=== PATIENT | female | born 1970 | race Caucasian/White ===

== ENCOUNTER 2017-04-25 22:03 | Emergency (ER) | payer OTHER, MEDICAID ==
[2017-04-25 22:10] VITALS: BP 108/58; BMI 54.3
[2017-04-25] MEDS ORDERED: PHENERGAN INJ 25 MG IM ONE (23:11)
[2017-04-25] MEDS ORDERED: TORADOL 60 MG VIAL IM ONE (23:11)
--- NOTE | 2017-04-25 23:16 | DR.GENAD ---
HPI - PCP Primary Care Physician: DR. NANETTE DAVENPORT - Complaint/Symptoms Chief Complaint Doctors Comments: Patient is complaining of left hip and lower back pain for the past 24 hours getting worst tonight with her having problems with her balance. States she took a pain pill earlier today but it did not relieve the pain completely. She denies dysuria, hematuri, fever or chills. States the pain starts in her lower back on the left side and goes down her left leg to her privates. states the pain is 10 of 10. States she has been taking care of her spouse with a broke hip but she has not been doing any heavy lifting. States she has been loosing weight recently and went from 335 to 317. She denies any recent trauma. Chief Complaint:: LEFT HIP PAIN THAT RADIATES TO CENTER OF BACK AND GOES DOWN; NUMBNESS Self Treatment fo Chief Complaint: NO TX - Nurses notes reviewed Nurses Notes Review: Yes - Source History Provided: Patient - Mode of Arrival Mode of Arrival: Wheelchair - Timing Onset of Chief Complaint: 04/25/17 Came on: Gradually - Duration Duration: Constant How lon Duration: Days - Location Location: let hip and lower back pain - Severity Severity: Moderate - Modifying Factors Worsens:: walking and movement Improves:: nothing PMH - PMH Past Medical History: Yes Past Medical History: Diabetes, Dyslipidemia, GERD, Hypertension Past Medical History Comment: RLS Past Surgical History: Yes Surgical History: Tonsillectomy Past Surgical History Comment: RIGHT EAR SURGERY; CATARACT; - Family History History of Family Medical Conditions: No - Social History Alcohol Use: None Do you use any recreational Drugs:: No Lives With: Spouse Lives Where: Home - infectious screening In the last 2 months have you had wt loss of >10#?: NO Have you had fever, night sweats or hemotysis?: No Have you traveled outside the country in the last 6 months?: No Isolation: Standard ROS - Review of Systems Constitutional: No Symptoms Reported. negative: See HPI, Chills, Diaphoresis, Fever, Malaise, Weakness, Irritable, Fatigue, Loss of Appetite, Other Eyes: No Symptoms Reported. negative: See HPI, Eye Pain, Blurred Vision, Tearing, Discharge, Photophobia, Diplopia, Other ENTM: No Symptoms Reported, Nose Discharge, Nose Congestion Respiratoy: No Symptoms Reported. negative: See HPI, Productive Cough, Non- Productive Cough, Moist Cough, Dry Cough, Hacking Cough, Barking Cough, Brassy Cough, Orthopnea, Short of Breath, Stridor, Wheezing, Hemoptysis, Other Cardiovascular: No Symptoms Reported Gastrointestinal/Abdominal: No Symptoms Reported. negative: See HPI, Abdominal Pain, Constipation, Diarrhea, Nausea, Vomiting, Food Intolerance, Other Genitourinary: No Symptoms Reported. negative: See HPI, Discharge, Dysuria, Frequency, Hematuria, Pain, Bleeding, Other Neurological: No Symptoms Reported, Paresthesia (left leg), Problems Walking ( left hip and back pain) Musculoskeletal: No Symptoms Reported, Left, Back, Hip Integumentary: No Symptoms Reported. negative: See HPI, Change in Color, Change in Hair/Nails, Dryness, Lesions, Lumps, Rash, Itching, Wound, Bruises, Juandice, Other Hematologic/Lymphatic: No Symptoms Reported. negative: See HPI, Anemia, Blood Clots, Easy Bleeding, Easy Bruising, Swollen Glands, Lymphadenopathy, Other Endocrine: No Symptoms Reported Psychiatric: No Symptoms Reported. negative: See HPI, Anxiety, Depression, Hallucinations, Excessive crying, Suicidal, Other PE - Vital Signs Vitals: Temperature 97.8 F Pulse Rate 65 Respiratory Rate 20 Blood Pressure 108/58 O2 Sat by Pulse Oximetry 100 - General Limitations: No Limitations General Appearance: Alert, In Distress (moderate) - Head Head Exam: Normal Inspection, Atraumatic, Normocephalic - Eyes Eye exam: Normal Appearance, PERRL, EOMI. negative: Scleral Icterus, Conjunctival Injection, Nystagmus, Miosis, Mydrasis, Periorbital Swelling, Periorbital Tenderness, Other - ENT ENT Exam: Normal Exam, Normal Oropharynx, Normal External Ear Exam, Mucous Membranes Moist, TM's Normal Bilaterally External Ear Exam: Normal External Inspection TM/Canal Exam: Bilateral Normal Nose Exam: Normal Nose Exam Mouth Exam: Normal Inspection. negative: Drooling, Trismus, Lip Swelling, Tongue Elevation, Tongue Swelling, Laceration, Other Throat Exam: Normal Inspection - Neck Neck Exam: Normal Inspection, Full ROM, Trachea Midline. negative: Tenderness, Meningismus, Lymphadenopathy, Thyromegaly, Other - Chest Chest Inspection: Normal Inspection, Symmetric Chest Wall Rise - Respiratory Respiratory Exam: Normal Lung Sounds Bilat Respiratory Exam: Bilateral Clear to Auscultation - Cardiovascular Cardiovascular Exam: Regular Rate, Normal Rhythm, Normal Heart Sounds - Abdominal Exam Abdominal Exam: Normal Inspection, Normal Bowel Sounds, Soft Abdominal Tenderness: negative: RUQ, RLQ, LUQ, LLQ, Epigastrium, Suprapubic, Diffuse, Mild, Moderate, Severe, Other - Extremities Extremities Exam: Normal Inspection, Full ROM, Tenderness (left hi tender on palpation; tender on palpation lower back L2-4), Normal Capillary Refill. negative: Edema, Joint Swelling, Calf Tenderness - Back Back Exam: Normal Inspection, Full ROM, Tenderness, Paraspinal Tenderness, Vertebral Tenderness (L2-L4) - Neurologic Neurological Exam: Alert, Oriented X3, CN II-XII Intact, Normal Gait, Reflexes Normal - Psychiatric Psychiatric Exam: Normal Affect, Normal Mood - Skin Skin Exam: Warm, Dry, Intact, Normal Color ROR - Labs Reviewed Laboratory Results Reviewed?: Yes (all x-ray results reviewed and discussed with patient and mother) - XRAY XRAY Interpreted by: Radiologist (CT lumbar: Multilevel discogenic degenerative change and facet arthropathy causing varying degrees of spinal canal and bony neural foraminal stenosis) - Diagnosis Discharge Problem: Spinal stenosis at L4-L5 level, Bulging lumbar disc, Bulging of intervertebral disc between L4 and L5, Degenerative disc disease, lumbar, Left hip pain, Morbid obesity - Discharge Plan Disposition: 01 HOME, SELF-CARE Condition: Stable Prescriptions: Ketorolac Tromethamine [Toradol Tab] 10 mg PO Q8H PRN #12 tab PRN Reason: Pain Methylprednisolone Dosepak 4Mg [MEDROL DOSEPAK (4 mg tab x 21)] 1 kimmy PO ONCE # 1 kimmy - Follow ups/Referrals Follow ups/Referrals: [facility],None [Primary Care Provider] - 3 days MATTIE LUNDBERG [STAFF PHYSICIAN] - 3 days - Instructions Instructions: Spinal Stenosis, Degenerative Disk Disease, Back Pain, Adult, [id number]
[2017-04-25] MEDS ORDERED: PHENERGAN INJ 25 MG ONE (23:23)
[2017-04-25] MEDS ORDERED: TORADOL 60 MG VIAL ONE (23:23)
--- NOTE | 2017-04-26 00:15 | CT ---
CT lumbar spine without contrast Indication: Back pain with left-sided radiculopathy Comparison: None available Technique: Multiple axial images of the lumbar spine were obtained from the upper abdomen to the pelv is without administration of IV contrast. Sagittal and coronal reformats were performed and reviewed . Findings: Alignment of the lumbar spine is maintained. No evidence for acute cortical disruption or subluxatio n can be seen. The posterior elements appear unremarkable. The prevertebral soft tissues are normal in their appearance. In addition, the surrounding paraspinous soft tissues are unremarkable. Mild multilevel spondylosis throughout the lumbar spine with moderate spondylosis at L5-S1. There is moderate facet arthropathy bilaterally at L4-5. Multilevel facet arthropathy is noted throughout the remaining lumbar spine.. Limited evaluation of disc bulge demonstrates broad-based disc bulge at L3-4 causing at least mild spinal canal stenosis with [id number] right-sided bony neural foraminal narrowing. Broad-based disc bulge at L4-5 with facet arthropathy causes [id number] spinal canal stenosis with mild right and [id number]-ki-[id number] left-sided bony neural foraminal narrowing. Mild broad -based disc bulge L5-S1 causes mild spinal canal stenosis with moderate right and mild left-sided bon y neural foraminal stenosis. IMPRESSION: No evidence for traumatic injury of the lumbar spine. Multilevel discogenic degenerative change and facet arthropathy causing varying degrees of spinal can al and bony neural foraminal stenosis as described above. Please note CT examination is less specific insensitive for detection of spinal canal and bony neural foraminal stenosis and MRI can further arjun luation MRI is recommended given patient's symptoms on nonemergent basis. Reported By:
[2017-04-26 00:20] LABS: BILIRUBIN,URINE 2+ (NEGATIVE); BLOOD/HEMOGLOBIN,URINE 1+ (NEGATIVE); GLUCOSE, URINE NEGATIVE (NEGATIVE); KETONES,URINE NEGATIVE (NEGATIVE); LEUKOCYTE ESTERASE ,URINE NEGATIVE (NEGATIVE); NITRITES,URINE NEGATIVE (NEGATIVE); PROTEIN,URINE NEGATIVE (NEGATIVE); UROBILINOGEN,URINE 1+ (NORMAL)
[2017-04-26] MEDS ORDERED: DECADRON INJ IM ONE (00:30)
[2017-04-26 00:36] LABS: APPEARANCE,URINE CLEAR (CLEAR); BACTERIA,URINE NEGATIVE /HPF (NEGATIVE); COLOR,URINE YELLOW (YELLOW); RBC,URINE 0-3 /HPF (NEGATIVE); SQUAMOUS EPITHELIAL CELL,UR RARE /HPF (NEGATIVE)
--- NOTE | 2017-04-26 01:09 | RAD ---
Two views of the left hip Indication: Left hip pain that radiates to back Findings: No acute fracture dislocation within the left hip. Mild degenerative change at the os aceta buli are noted within the left femoroacetabular joint. Femoral head remains well positioned within th e acetabular fossa. No femoral neck fracture identified. Pubic symphysis and SI joints are intact. Impression: 1.No acute radiographic abnormality within the left hip. 2. Mild degenerative change in and/or os acetabuli noted within the left femoroacetabular joint. Reported By:
== END 2017-04-26 01:02 | disposition home or self-care (01) ==
LOC: ER 22:03
DX: M48.061 Spinal stenosis, lumbar region without neurogenic claudication (principal); M51.06 Intervertebral disc disorders with myelopathy, lumbar region; M51.36 Other intervertebral disc degeneration, lumbar region; M25.552 Pain in left hip; E66.01 Morbid (severe) obesity due to excess calories
CPT/HCPCS: 72131; 73501; 81001; 96372; 99282; 99284; J1885; J2550

== ENCOUNTER 2017-04-28 21:47 | Emergency (ER) | payer OTHER, MEDICAID ==
[2017-04-28 21:57] VITALS: BMI 54.3
--- NOTE | 2017-04-28 22:12 | DR.GENAD ---
HPI - PCP Primary Care Physician: ERIN DAVENPORT - Complaint/Symptoms Chief Complaint Doctors Comments: Patient was evaluated two days ago with x rays of lumbar and hip. Diagnosed with DJD; she is on [place]-10 for pain. Admits to seeing her physician today. Chief Complaint:: PAIN IN LEFT HIP AND BACK; PAIN RADIATES DOWN LEFT LEG Self Treatment fo Chief Complaint: PT HAS NOT TAKEN ANY OF HER MEDS; PT HAS APPT WITH DR. ROSALES ON THURSDAY, BUT SHE IS IN A LOT OF PAIN NOW. - Source History Provided: Patient - Mode of Arrival Mode of Arrival: Ambulatory - Timing Onset of Chief Complaint: 04/22/17 PMH - PMH Past Medical History: Yes Past Medical History: Dyslipidemia, GERD, Headaches, Hypertension Past Medical History Comment: RLS; Past Surgical History: Yes Surgical History: Tonsillectomy Past Surgical History Comment: RIGHT EAR SURGERY - Family History History of Family Medical Conditions: No - Social History Does patient currently use any type of tobacco product: No Alcohol Use: None Do you use any recreational Drugs:: No Lives With: Spouse - infectious screening In the last 2 months have you had wt loss of >10#?: NO Have you had fever, night sweats or hemotysis?: No Have you traveled outside the country in the last 6 months?: No Isolation: Standard ROS - Review of Systems Eyes: No Symptoms Reported ENTM: No Symptoms Reported Respiratoy: No Symptoms Reported Cardiovascular: No Symptoms Reported Gastrointestinal/Abdominal: No Symptoms Reported Genitourinary: No Symptoms Reported Neurological: No Symptoms Reported Musculoskeletal: No Symptoms Reported Integumentary: No Symptoms Reported Hematologic/Lymphatic: No Symptoms Reported Endocrine: No Symptoms Reported Psychiatric: No Symptoms Reported All Other Systems: Reviewed and Negative PE - Vital Signs Vitals: Temperature 97.7 F Pulse Rate 68 Respiratory Rate 16 Blood Pressure [Right Arm] 132/71 Blood Pressure 138/67 O2 Sat by Pulse Oximetry 100 - General Limitations: No Limitations General Appearance: Alert, In No Apparent Distress - Head Head Exam: Normal Inspection, Atraumatic - Eyes Eye exam: Normal Appearance, PERRL, EOMI - ENT ENT Exam: Normal Exam External Ear Exam: Normal External Inspection TM/Canal Exam: Bilateral Normal Nose Exam: Normal Nose Exam Mouth Exam: Normal Inspection Throat Exam: Normal Inspection - Neck Neck Exam: Normal Inspection, Full ROM - Chest Chest Inspection: Normal Inspection, Symmetric Chest Wall Rise - Respiratory Respiratory Exam: Normal Lung Sounds Bilat, Accessory Muscle Use Respiratory Exam: Bilateral Clear to Auscultation - Cardiovascular Cardiovascular Exam: Regular Rate, Normal Rhythm - Abdominal Exam Abdominal Exam: Normal Inspection, Normal Bowel Sounds Abdominal Tenderness: negative: RUQ, RLQ, LUQ, LLQ, Epigastrium, Suprapubic, Diffuse, Mild, Moderate, Severe, Other - Extremities Extremities Exam: Normal Inspection, Full ROM - Back Back Exam: Normal Inspection, Full ROM - Neurologic Neurological Exam: Alert, Oriented X3, CN II-XII Intact - Psychiatric Psychiatric Exam: Normal Affect, Normal Mood - Skin Skin Exam: Warm, Dry, Intact - Diagnosis Discharge Problem: Degenerative disc disease, lumbar - Discharge Plan Condition: Stable - Follow ups/Referrals Follow ups/Referrals: ERIN DAVENPORT [Primary Care Provider] - 3 days - Instructions
[2017-04-28 22:56] LABS: BILIRUBIN,URINE 1+ (NEGATIVE); BLOOD/HEMOGLOBIN,URINE NEGATIVE (NEGATIVE); GLUCOSE, URINE NEGATIVE (NEGATIVE); KETONES,URINE NEGATIVE (NEGATIVE); LEUKOCYTE ESTERASE ,URINE NEGATIVE (NEGATIVE); NITRITES,URINE NEGATIVE (NEGATIVE); PROTEIN,URINE NEGATIVE (NEGATIVE); UROBILINOGEN,URINE 2+ (NORMAL)
[2017-04-28] MEDS ORDERED: TORADOL 60 MG VIAL IM ONE (22:57)
[2017-04-28] MEDS ORDERED: TORADOL 60 MG VIAL ONE (23:00)
[2017-04-28] MEDS ORDERED: PHENERGAN INJ 25 MG IM ONE (23:02)
[2017-04-28] MEDS ORDERED: PHENERGAN INJ 25 MG ONE (23:04)
[2017-04-28 23:11] VITALS: BP 132/71
[2017-04-28 23:30] LABS: APPEARANCE,URINE CLEAR (CLEAR); BACTERIA,URINE TRACE /HPF (NEGATIVE); COLOR,URINE YELLOW (YELLOW); RBC,URINE 0-3 /HPF (NEGATIVE); SQUAMOUS EPITHELIAL CELL,UR FEW /HPF (NEGATIVE)
== END 2017-04-28 23:30 | disposition home or self-care (01) ==
LOC: ER 22:03
DX: M51.36 Other intervertebral disc degeneration, lumbar region (principal)
CPT/HCPCS: 81001; 96372; 99282; J1885; J2550

== ENCOUNTER 2017-05-10 20:19 | Emergency (ER) | payer OTHER, MEDICAID ==
[2017-05-10 20:38] VITALS: BP 120/80; BMI 54.3
[2017-05-10] MEDS ORDERED: TORADOL 60 MG VIAL IM ONE (21:01)
--- NOTE | 2017-05-10 21:01 | DR.GENAD ---
HPI - PCP Primary Care Physician: NANETTE DAVENPORT - Complaint/Symptoms Chief Complaint Doctors Comments: Patient presents with complaint of back and hip pain. She has been diagnosed with DJD recommended to follow up with primary care physician. Chief Complaint:: HURTING IN BACK, NECK, BILATERAL LEGS AND HEADACHE. Self Treatment fo Chief Complaint: TAKEN DICLOFENAC BUT OUT OF HYDROCODONE, LAID DOWN - Source History Provided: Patient - Mode of Arrival Mode of Arrival: Wheelchair - Timing Onset of Chief Complaint: 05/10/17 PMH - PMH Past Medical History: Yes Past Medical History: Anxiety, Arthritis, Depression, Migraines, GERD, Headaches , Hypertension, Hypothyroidism, Sleep Apnea Past Surgical History: Yes Surgical History: Tonsillectomy Past Surgical History Comment: EAR, CATARACT BILATERAL - Family History History of Family Medical Conditions: Yes Family Medical History: Diabetes Mellitus, [place], Coronary Artery Disease, Hypertension - Social History Does patient currently use any type of tobacco product: No Have you used tobacco products in the last 12 months: No Type of Tobacco Use: None Alcohol Use: None Do you use any recreational Drugs:: No Lives With: Spouse Lives Where: Home - infectious screening In the last 2 months have you had wt loss of >10#?: NO Have you had fever, night sweats or hemotysis?: No Have you traveled outside the country in the last 6 months?: No Isolation: Standard ROS - Review of Systems Eyes: No Symptoms Reported ENTM: No Symptoms Reported Respiratoy: No Symptoms Reported Cardiovascular: No Symptoms Reported Gastrointestinal/Abdominal: No Symptoms Reported Genitourinary: No Symptoms Reported Neurological: No Symptoms Reported Musculoskeletal: No Symptoms Reported Integumentary: No Symptoms Reported Hematologic/Lymphatic: No Symptoms Reported Endocrine: No Symptoms Reported Psychiatric: No Symptoms Reported All Other Systems: Reviewed and Negative PE - Vital Signs Vitals: Temperature 97.9 F Pulse Rate 83 Respiratory Rate 20 Blood Pressure [Right Arm] 132/71 Blood Pressure 120/80 O2 Sat by Pulse Oximetry 98 - General Limitations: No Limitations General Appearance: Alert, In No Apparent Distress - Head Head Exam: Normal Inspection, Atraumatic - Eyes Eye exam: Normal Appearance, PERRL, EOMI - ENT ENT Exam: Normal Exam External Ear Exam: Normal External Inspection TM/Canal Exam: Bilateral Normal Nose Exam: Normal Nose Exam Mouth Exam: Normal Inspection Throat Exam: Normal Inspection - Neck Neck Exam: Normal Inspection, Full ROM - Chest Chest Inspection: Normal Inspection - Respiratory Respiratory Exam: Normal Lung Sounds Bilat Respiratory Exam: Bilateral Clear to Auscultation - Cardiovascular Cardiovascular Exam: Regular Rate, Normal Rhythm - Abdominal Exam Abdominal Exam: Normal Inspection Abdominal Tenderness: negative: RUQ, RLQ, LUQ, LLQ, Epigastrium, Suprapubic, Diffuse, Mild, Moderate, Severe, Other - Extremities Extremities Exam: Normal Inspection, Full ROM - Back Back Exam: Normal Inspection, Other (mid low back tenderness) - Neurologic Neurological Exam: Alert, Oriented X3, CN II-XII Intact - Psychiatric Psychiatric Exam: Normal Affect - Skin Skin Exam: Warm, Dry, Intact - Diagnosis Discharge Problem: Bulging of intervertebral disc between L4 and L5, Degenerative disc disease, lumbar - Discharge Plan Condition: Stable - Follow ups/Referrals Follow ups/Referrals: ERIN DAVENPORT [Primary Care Provider] - 3 days - Instructions
[2017-05-10] MEDS ORDERED: TORADOL 60 MG VIAL ONE (21:04)
== END 2017-05-10 21:28 | disposition home or self-care (01) ==
LOC: ER 20:19
DX: M51.06 Intervertebral disc disorders with myelopathy, lumbar region (principal); M51.36 Other intervertebral disc degeneration, lumbar region
CPT/HCPCS: 96372; 99282; J1885